=== PATIENT | female | born 1980 | race African-American/Black ===

== ENCOUNTER 2017-03-31 23:15 | Emergency (ER) | payer BC ==
[~2017-03-31] VITALS: Ht 172.7 cm; Wt 101.0 kg
[~2017-03-31 23:15] MED LIST: AMLODIPINE BESYL5 MG PO; CITALOPRAM HBR20 MG PO; DILAUDID2 MG PO; HAIR VITAMIN1 EACH PO; MOTRIN800 MG PO; MULTIVITAMIN1 EAC2 PO; ZOFRAN4 MG PO
[2017-03-31 23:50] VITALS: BP 163/108
== END 2017-03-31 23:56 | disposition home or self-care (01) ==
LOC: EME 23:15
DX: S20.412A Abrasion of left back wall of thorax, initial encounter (principal); X50.9XXA Other and unspecified overexertion or strenuous movements or postures, initial encounter; Y99.0 Civilian activity done for income or pay; I10 Essential (primary) hypertension
CPT/HCPCS: 99281; 99283